=== PATIENT | male | born 1985 | race Caucasian/White ===

== ENCOUNTER 2016-06-30 23:32 | Emergency (ER) | payer OTHER ==
--- NOTE | 2016-07-01 02:40 | ED CLINICAL REPORT ---
Clinical Report - Physicians/Mid Levels [facility] [address] [place] [address] 06/30/2016 23:32 [id number] Time Seen: 00:44 Jul 01 2016. Arrived- By private vehicle. Historian- patient. CPT: ER phys charges level 3 (#[id number]). HISTORY OF PRESENT ILLNESS Chief Complaint: RIGHT TESTICULAR PAIN. 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 No dysuria or penile discharge. and is still present. The problem is described as moderate. No penile discharge, discomfort with urination, urinary frequency or genital lesion. He has had moderate testicular pain, involving the right testicle. Sexual history is noncontributory. He has not had an exposure to a sexually transmitted disease. Similar symptoms previously: None. Recent medical care: Not recently seen/assessed. REVIEW OF SYSTEMS No fever, chills, flank pain, hematuria or abdominal pain. No vomiting, diarrhea, black stools, sore throat or chest pain. No difficulty breathing, cough, joint pain, skin rash or back pain. All systems otherwise negative, except as recorded above. PAST HISTORY No history of sexually transmitted disease, epididymitis, prostatitis or urinary retention. Medications: None. Allergies: No Known Drug Allergy. SOCIAL HISTORY Heavy tobacco smoker (cigarette)- less than 1 pack per day. 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 No alcohol use. ADDITIONAL NOTES The nursing notes have been reviewed. PHYSICAL EXAM Vital Signs: 06/30/2016 23:43 BP: 138/90. HR: 100. RR: 20. O2 saturation: 96%. Temp: 98.1 F. Pain level now: 7/10. Appearance: Alert. Patient in mild distress. ENT: Pharynx normal. Neck: Neck supple. CVS: Heart sounds normal. Respiratory: No respiratory distress. Breath sounds normal. Abdomen: Soft and nontender. : Moderate left-sided scrotal swelling with tenderness. No erythema or fluctuance. No urethral discharge or genital lesion. Skin: Skin warm. Normal skin color. No rash. Extremities: Extremities exhibit normal ROM. No lower extremity edema. Neuro: Oriented X 3. No motor deficit. No sensory deficit. LABS, X-RAYS, AND EKG Testicular Scan: (Epididimytis left testicle.). The study was independently viewed by me and interpreted contemporaneously by me. Prior studies were not available for comparison. Laboratory Tests: UA-Culture if indicated: (CHADD: 07/01/2016 01:35) ( MsgRcvd 07/01/2016 01:57) Final results Test Result Flag Units (Reference) URINE COLOR YELLOW URINE APPEARANCE CLEAR URINE GLUCOSE NEGATIVE (NEGATIVE) URINE BILIRUBIN NEGATIVE (NEGATIVE) URINE KETONE NEGATIVE (NEGATIVE) URINE SPECIFIC GRAVITY >= 1.030 (1.010-1.030) URINE PH 6.0 (5.0-8.0) URINE PROTEIN NEGATIVE (NEGATIVE) URINE UROBILINOGEN 1.0 EU/dL (0.2-1.0) URINE NITRITE NEGATIVE (NEGATIVE) URINE BLOOD NEGATIVE (NEGATIVE) URINE LEUK ESTERASE NEGATIVE (NEGATIVE) URINE RBC NONE SEEN rbc/hpf (0-1) URINE WBC 0-1 wbc/hpf (0-1) URINE EPITHELIAL CELLS NONE SEEN EPI/hpf (0-5) URINE BACTERIA NONE SEEN (NONE SEEN) URINE COMMENT CULT NOT INDICATED URINE CULTURES ARE SET-UP BASED ON THE FOLLOWING CRITERIA:POSITIVE NITRITEPOSITIVE LEUKOCYTE ESTERASEGREATER THAN 10 WHITE BLOOD CELLSMODERATE (2+) OR GREATER BACTERIA . PROGRESS AND PROCEDURES Course of Care: Doxycycline 100 mg po. Patient/family counseled. Disposition: Discharged. Condition: stable. CLINICAL IMPRESSION Left epididymitis INSTRUCTIONS No strenuous activity. Drink plenty of fluids. Warnings: Further evaluation is necessary. GENERAL WARNINGS: Return or contact your physician immediately if your condition worsens or changes unexpectedly, if not improving as expected, or if other problems arise. Prescription Medications: Hydrocodone/APAP 5mg/325mg: take 1 to 2 orally every 6 hours as needed for pain. Dispense fifteen (15). No refills. Doxycycline 100 mg: Take 1 capsule orally every 12 hours for 10 days. No refill. Follow-up: Follow up with your doctor in one week. Call for an appointment. Understanding of the discharge instructions verbalized by patient. Discharge instructions reviewed with and understanding was verbalized by skin lifter bacon. (Electronically signed by Jose C Bowman MD 07/03/2016 20:50)
--- NOTE | 2016-07-01 02:40 | ED CLINICAL REPORT ---
Clinical Report - Physicians/Mid Levels [facility] [address] [place] [address] 06/30/2016 23:32 [id number] Time Seen: 00:44 Jul 01 2016. Arrived- By private vehicle. Historian- patient. CPT: ER phys charges level 3 (#[id number]). HISTORY OF PRESENT ILLNESS Chief Complaint: RIGHT TESTICULAR PAIN. 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 No dysuria or penile discharge. and is still present. The problem is described as moderate. No penile discharge, discomfort with urination, urinary frequency or genital lesion. He has had moderate testicular pain, involving the right testicle. Sexual history is noncontributory. He has not had an exposure to a sexually transmitted disease. Similar symptoms previously: None. Recent medical care: Not recently seen/assessed. REVIEW OF SYSTEMS No fever, chills, flank pain, hematuria or abdominal pain. No vomiting, diarrhea, black stools, sore throat or chest pain. No difficulty breathing, cough, joint pain, skin rash or back pain. All systems otherwise negative, except as recorded above. PAST HISTORY No history of sexually transmitted disease, epididymitis, prostatitis or urinary retention. Medications: None. Allergies: No Known Drug Allergy. SOCIAL HISTORY Heavy tobacco smoker (cigarette)- less than 1 pack per day. 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 No alcohol use. ADDITIONAL NOTES The nursing notes have been reviewed. PHYSICAL EXAM Vital Signs: 06/30/2016 23:43 BP: 138/90. HR: 100. RR: 20. O2 saturation: 96%. Temp: 98.1 F. Pain level now: 7/10. Appearance: Alert. Patient in mild distress. ENT: Pharynx normal. Neck: Neck supple. CVS: Heart sounds normal. Respiratory: No respiratory distress. Breath sounds normal. Abdomen: Soft and nontender. : Moderate left-sided scrotal swelling with tenderness. No erythema or fluctuance. No urethral discharge or genital lesion. Skin: Skin warm. Normal skin color. No rash. Extremities: Extremities exhibit normal ROM. No lower extremity edema. Neuro: Oriented X 3. No motor deficit. No sensory deficit. LABS, X-RAYS, AND EKG Testicular Scan: (Epididimytis left testicle.). The study was independently viewed by me and interpreted contemporaneously by me. Prior studies were not available for comparison. Laboratory Tests: UA-Culture if indicated: (CHADD: 07/01/2016 01:35) ( MsgRcvd 07/01/2016 01:57) Final results Test Result Flag Units (Reference) URINE COLOR YELLOW URINE APPEARANCE CLEAR URINE GLUCOSE NEGATIVE (NEGATIVE) URINE BILIRUBIN NEGATIVE (NEGATIVE) URINE KETONE NEGATIVE (NEGATIVE) URINE SPECIFIC GRAVITY >= 1.030 (1.010-1.030) URINE PH 6.0 (5.0-8.0) URINE PROTEIN NEGATIVE (NEGATIVE) URINE UROBILINOGEN 1.0 EU/dL (0.2-1.0) URINE NITRITE NEGATIVE (NEGATIVE) URINE BLOOD NEGATIVE (NEGATIVE) URINE LEUK ESTERASE NEGATIVE (NEGATIVE) URINE RBC NONE SEEN rbc/hpf (0-1) URINE WBC 0-1 wbc/hpf (0-1) URINE EPITHELIAL CELLS NONE SEEN EPI/hpf (0-5) URINE BACTERIA NONE SEEN (NONE SEEN) URINE COMMENT CULT NOT INDICATED URINE CULTURES ARE SET-UP BASED ON THE FOLLOWING CRITERIA:POSITIVE NITRITEPOSITIVE LEUKOCYTE ESTERASEGREATER THAN 10 WHITE BLOOD CELLSMODERATE (2+) OR GREATER BACTERIA . PROGRESS AND PROCEDURES Course of Care: Doxycycline 100 mg po. Patient/family counseled. Disposition: Discharged. Condition: stable. CLINICAL IMPRESSION Left epididymitis INSTRUCTIONS No strenuous activity. Drink plenty of fluids. Warnings: Further evaluation is necessary. GENERAL WARNINGS: Return or contact your physician immediately if your condition worsens or changes unexpectedly, if not improving as expected, or if other problems arise. Prescription Medications: Hydrocodone/APAP 5mg/325mg: take 1 to 2 orally every 6 hours as needed for pain. Dispense fifteen (15). No refills. Doxycycline 100 mg: Take 1 capsule orally every 12 hours for 10 days. No refill. Follow-up: Follow up with your doctor in one week. Call for an appointment. Understanding of the discharge instructions verbalized by patient. Discharge instructions reviewed with and understanding was verbalized by capacitor assembler. (Electronically signed by Jose C Bowman MD 07/03/2016 20:50)
--- NOTE | 2016-07-01 02:40 | ED NURSING NOTES ---
Clinical Report - Nurses [facility] [address] [place] [address] 06/30/2016 23:32 Patient: BECKY SAENZ TRIAGE Triage time 23:43 Jun 30 2016. Acuity: LEVEL 3. Chief Complaint: TESTICULAR PAIN and (left testical swelling). SEPSIS SCREEN: Sepsis Screen: negative. Infection suspected/documented. --23:47 Felicia Moore 23:43 06/30/16. BP: 138/90. HR: 100. RR: 20. O2 saturation: 96% on room air. Temp: 98.1 F (oral). Pain level now: 12/11. --23:47 Felicia Moore. Weight: 72.5 kg stated. Height/Length: 69 inches Per Patient. BMI: 23.6. --23:46 Felicia Moore. Medications None. --23:44 Felicia Moore. Allergies No Known Drug Allergy. --23:44 Felicia Moore. History Arrived by private vehicle. Historian: patient. Accompanied by friend. Primary physician (none). Onset. (3 days). ( Patient states on Sunday he began having some pain in his left testicle. He states by Sunday the testicle had become swollen. He states he is having some difficulty urinating. He denies any discharge.). PAST MEDICAL HX: Immunizations: up-to-date. SOCIAL HX: Light tobacco smoker (cigarette)- less than 1/2 a pack per day. History of drug use. (Just started going to suboxone clinic for opiate addiction). No alcohol use. No infectious disease exposure. ABUSE ASSESSMENT: No report of abuse. FALL RISK ASSESSMENT: Fall risk assessment completed. No fall risk identified. NUTRITIONAL RISK ASSESSMENT: The nutritional risk assessment revealed no deficiencies. FUNCTIONAL ASSESSMENT: Functional assessment: no impairments noted. LEARNING NEEDS ASSESSMENT: The learning needs assessment revealed no barriers. SKIN INTEGRITY ASSESSMENT: Skin integrity risk assessment completed. No skin integrity risk identified. --23:47 Felicia Moore. PROBLEMS: Suicidal Ideation. Alcohol Intoxication. Hypertension. Cardiomegaly. --23:45 Felicia Moore. ADDITIONAL SURGERIES: Right shoulder. --23:45 Felicia Moore. Interventions ID band on patient. To treatment room. --23:47 Felicia Moore. PHYSICAL ASSESSMENT Ambulatory to room. Patient gowned. GENERAL / NEURO / PSYCH: Alert. Oriented X 4. Appears in no acute distress. HEENT: Mucous membranes are pink. RESPIRATORY: Respirations not labored. GI / : Left-sided scrotal swelling. Scrotal tenderness. SKIN: Skin is warm and dry. --23:48 Felicia Moore. NURSING PROGRESS NOTES 23:48 06/30/16. Patient gowned. Reassurance given to the patient and patient's friends. Two patient identifiers checked. Call light placed in reach. Side rails up x 1. Bed placed in lowest position. Brakes of bed on. Patient ready for evaluation- chart flagged. --23:48 Felicia Moore 01:10 07/01/16. BP: 134/81. HR: 98. RR: 20. O2 saturation: 98% on room air. --01:11 Felicia Moore The patient reports no complaints and he is resting quietly. --01:11 Felicia Moore 02:42 07/01/2016 DOXYCYCLINE HYCLATE PO Capsules 100 mg given. Allergies verified and confirmed 5 rights. --02:52 Felicia Moore. DISPOSITION / DISCHARGE 03:00 07/01/16. Condition at departure: stable. No learning barriers present. Discharge instructions provided and reviewed with actuarial technician and the patient. Reviewed medication(s) side effects, precautions, dosing and course information. Prescription(s) given to the patient. Patient verbalized understanding. Written instructions provided in Mauritian. ( Follow up with your doctor in one week as needed. Complete antibiotics as prescribed.). The patient was discharged by the physician. He was discharged home and accompanied by actuarial technician. He left the Emergency Department ambulatory and via private vehicle. Bargeman driving. --03:16 Felicia Moore 02:55 07/01/16. BP: 120/83. HR: 100. RR: 20. O2 saturation: 96% on room air. Temp: 98.6 F (oral). Pain level now: 11/11. --03:16 Felicia Moore. Locked/Released at 07/01/2016 3:17 by Felicia Moore,
--- NOTE | 2016-07-01 02:40 | ED ORDER SUMMARY ---
..... Patient: BECKY SAENZ OrderSheet [facility] VisitID: [id number] [place] [address] 31y, M Registration Date/Time: 06/30/2016 ORDER SHEET Weight: 72.5 kg (stated) Allergies: No Known Drug Allergy GENERAL ORDERS: US Scrotum/Testicular Urgent (00:50 07/01/2016 Estefania DOAN) (Ack 0:52 AMcQuoid ER Tech1) (2:04 AMcQuoid ER Tech1) UA-Culture if indicated Urgent (00:50 07/01/2016 Estefania DOAN) (Ack 0:52 AMcQuoid ER Tech1) (1:43 Eric R.NJess) MEDICATION ORDERS: Doxycycline Hyclate PO 100 mg (NOW) (02:38 07/01/2016 Estefania DOAN) (Ack 2:39 HSoule) (2:52 HSoule) IV FLUIDS: ORDER SHEET NOTES: [Electronically signed by eFlicia Moore (03:17 07/01/2016)] [Electronically signed by Jose C Bowman MD (20:50 07/03/2016)] [Electronically locked/signed by Felicia Moore (03:07/01/2016)]
--- NOTE | 2016-07-01 02:40 | ED NURSING NOTES ---
Clinical Report - Nurses [facility] [address] [place] [address] 06/30/2016 23:32 Patient: BECKY SAENZ TRIAGE Triage time 23:43 Jun 30 2016. Acuity: LEVEL 3. Chief Complaint: TESTICULAR PAIN and (left testical swelling). SEPSIS SCREEN: Sepsis Screen: negative. Infection suspected/documented. --23:47 Felicia Moore 23:43 06/30/16. BP: 138/90. HR: 100. RR: 20. O2 saturation: 96% on room air. Temp: 98.1 F (oral). Pain level now: 12/11. --23:47 Felicia Moore. Weight: 72.5 kg stated. Height/Length: 69 inches Per Patient. BMI: 23.6. --23:46 Felicia Moore. Medications None. --23:44 Felicia Moore. Allergies No Known Drug Allergy. --23:44 Felicia Moore. History Arrived by private vehicle. Historian: patient. Accompanied by friend. Primary physician (none). Onset. (3 days). ( Patient states on Sunday he began having some pain in his left testicle. He states by Sunday the testicle had become swollen. He states he is having some difficulty urinating. He denies any discharge.). PAST MEDICAL HX: Immunizations: up-to-date. SOCIAL HX: Light tobacco smoker (cigarette)- less than 1/2 a pack per day. History of drug use. (Just started going to suboxone clinic for opiate addiction). No alcohol use. No infectious disease exposure. ABUSE ASSESSMENT: No report of abuse. FALL RISK ASSESSMENT: Fall risk assessment completed. No fall risk identified. NUTRITIONAL RISK ASSESSMENT: The nutritional risk assessment revealed no deficiencies. FUNCTIONAL ASSESSMENT: Functional assessment: no impairments noted. LEARNING NEEDS ASSESSMENT: The learning needs assessment revealed no barriers. SKIN INTEGRITY ASSESSMENT: Skin integrity risk assessment completed. No skin integrity risk identified. --23:47 Felicia Moore. PROBLEMS: Suicidal Ideation. Alcohol Intoxication. Hypertension. Cardiomegaly. --23:45 Felicia Moore. ADDITIONAL SURGERIES: Right shoulder. --23:45 Felicia Moore. Interventions ID band on patient. To treatment room. --23:47 Felicia Moore. PHYSICAL ASSESSMENT Ambulatory to room. Patient gowned. GENERAL / NEURO / PSYCH: Alert. Oriented X 4. Appears in no acute distress. HEENT: Mucous membranes are pink. RESPIRATORY: Respirations not labored. GI / : Left-sided scrotal swelling. Scrotal tenderness. SKIN: Skin is warm and dry. --23:48 Felicia Moore. NURSING PROGRESS NOTES 23:48 06/30/16. Patient gowned. Reassurance given to the patient and patient's friends. Two patient identifiers checked. Call light placed in reach. Side rails up x 1. Bed placed in lowest position. Brakes of bed on. Patient ready for evaluation- chart flagged. --23:48 Felicia Moore 01:10 07/01/16. BP: 134/81. HR: 98. RR: 20. O2 saturation: 98% on room air. --01:11 Felicia Moore The patient reports no complaints and he is resting quietly. --01:11 Felicia Moore 02:42 07/01/2016 DOXYCYCLINE HYCLATE PO Capsules 100 mg given. Allergies verified and confirmed 5 rights. --02:52 Felicia Moore. DISPOSITION / DISCHARGE 03:00 07/01/16. Condition at departure: stable. No learning barriers present. Discharge instructions provided and reviewed with benzene operator and the patient. Reviewed medication(s) side effects, precautions, dosing and course information. Prescription(s) given to the patient. Patient verbalized understanding. Written instructions provided in Panamanian. ( Follow up with your doctor in one week as needed. Complete antibiotics as prescribed.). The patient was discharged by the physician. He was discharged home and accompanied by benzene operator. He left the Emergency Department ambulatory and via private vehicle. Recreation Facilities Supervisor driving. --03:16 Felicia Moore 02:55 07/01/16. BP: 120/83. HR: 100. RR: 20. O2 saturation: 96% on room air. Temp: 98.6 F (oral). Pain level now: 11/11. --03:16 Felicia Moore. Locked/Released at 07/01/2016 3:17 by Felicia Moore,
--- NOTE | 2016-07-01 02:40 | ED ORDER SUMMARY ---
..... Patient: BECKY SAENZ OrderSheet [facility] VisitID: [id number] [place] [address] 31y, M Registration Date/Time: 06/30/2016 ORDER SHEET Weight: 72.5 kg (stated) Allergies: No Known Drug Allergy GENERAL ORDERS: US Scrotum/Testicular Urgent (00:50 07/01/2016 Estefania DOAN) (Ack 0:52 AMcQuoid ER Tech1) (2:04 AMcQuoid ER Tech1) UA-Culture if indicated Urgent (00:50 07/01/2016 Estefania DOAN) (Ack 0:52 AMcQuoid ER Tech1) (1:43 Eric R.NJess) MEDICATION ORDERS: Doxycycline Hyclate PO 100 mg (NOW) (02:38 07/01/2016 Estefania DOAN) (Ack 2:39 HSoule) (2:52 HSoule) IV FLUIDS: ORDER SHEET NOTES: [Electronically signed by Felicia Moore (03:17 07/01/2016)] [Electronically signed by Jose C Bowman MD (20:50 07/03/2016)] [Electronically locked/signed by Felicia Moore (03:07/01/2016)]
--- NOTE | 2016-07-01 15:40 | DIAGNOSTIC IMAGING REPORT ---
PROCEDURE: US SCROTUM/TESTICLE INDICATION: Scrotal swelling and left-sided pain, initial encounter TECHNIQUE: Moura scale and color Doppler sonographic images through the scrotum were obtained. COMPARISON: None. FINDINGS: RIGHT TESTICLE: Measures 4.4 x 2.4 x 2.8 cm. Normal echo structure and vascularity. 3.8 mm cyst in the head of the epididymis. Small hydrocele LEFT TESTICLE: Measures 4.3 x 2.5 x 2.9 cm with normal echo structure and vascularity. Enlargement of the epididymal tail with increased vascularity suggestive of epididymitis. Small hydrocele. IMPRESSION: 1. Left epididymitis 2. Small bilateral hydroceles
--- NOTE | 2016-07-03 20:51 | ED MED RECONCILIATION SUMMARY ---
Patient: BECKY SAENZ Medication Reconciliation Report [facility] VisitID: [id number] [place] [address] 31y, M Registration Date/Time: 06/30/2016 Weight: 72.5 kg Height/Length: 69 in. BMI: 23.6 ALLERGIES: No Known Drug Allergy The patient's Home Medications are listed below: NONE. The source(s) of the original Home Medication information: Not obtained. The following Medications were given to the patient in the Emergency Department: DOXYCYCLINE HYCLATE [PO] PO 100 mg, administered: 07/01/2016 2:42:00 AM The following Medications were prescribed to the patient: Hydrocodone/APAP 5mg/325mg: take 1 to 2 orally every 6 hours as needed for pain. Dispense fifteen (15). No refills. -- Jose C Bowman MD Doxycycline 100 mg: Take 1 capsule orally every 12 hours for 10 days. No refill. -- Jose C Bowman MD
--- NOTE | 2016-07-03 20:51 | ED DISCHARGE INSTRUCTIONS ---
Patient: BECKY SAENZ General Instructions [facility] VisitID: [id number] [place] [address] 31y, M Registration Date/Time: 06/30/2016 Left epididymitis INSTRUCTIONS No strenuous activity. Drink plenty of fluids. Warnings: Further evaluation is necessary. GENERAL WARNINGS: Return or contact your physician immediately if your condition worsens or changes unexpectedly, if not improving as expected, or if other problems arise. Prescription Medications: Hydrocodone/APAP 5mg/325mg: take 1 to 2 orally every 6 hours as needed for pain. Dispense fifteen (15). No refills. Doxycycline 100 mg: Take 1 capsule orally every 12 hours for 10 days. No refill. Follow-up: Follow up with your doctor in one week. Call for an appointment. Understanding of the discharge instructions verbalized by patient. Discharge instructions reviewed with and understanding was verbalized by cannon pinion adjuster. ADDITIONAL INFORMATION Epididymitis The pain and swelling in your scrotum are due to an inflammation of the epididymis. This is a small sac next to the testicle that stores sperm. It is usually due to an infection. In sexually active men, it is often due to a sexually transmitted disease (STD) such as Chlamydia or Gonorrhea. In boys and older men who are not sexually active, it is due to bacteria from the bladder or prostate gland (not an STD infection). Symptoms may begin with lower abdominal or low back pain and spreads down into the scrotum. Usually only one side is affected. The testicle and scrotum swell and become very painful. There may be fever and burning when passing urine. Sometimes there is a discharge from the penis. Treatment is with antibiotics, anti-inflammatory and pain medicines. There should be improvement over the first few days of treatment, but it will take several weeks for all the swelling and discomfort to go away. If an STD is suspected as a cause, sexual partners must also be treated. Home Care: 1) Support the scrotum. When lying down, place a rolled towel under the scrotum. When walking, use an athletic supporter or two pairs of Jockey-style underwear. 2) To relieve pain, apply ice packs to the inflamed area (ice cubes in a plastic bag wrapped in a towel). 3) You may use acetaminophen (Tylenol) or ibuprofen (Motrin, Advil) to control pain, unless another medicine was prescribed. [ NOTE : If you have chronic liver or kidney disease or ever had a stomach ulcer or GI bleeding, talk with your doctor before using these medicines.] 4) Rest in bed until the fever, pain and swelling decrease. It may take several weeks for all of the swelling to go away. Avoid coffee, tea, carbonated beverages and alcohol, which could worsen your symptoms. 5) Avoid constipation (which causes straining and therefore increased pain) by eating natural laxatives such as prunes, fresh fruits and whole-grain cereals. If necessary, use a mild koba-odr-yjsinlf laxative (Milk of Magnesia) for constipation. Mineral oil can be used to keep the stools soft. 6) Do not have sex until you have finished all treatment and all symptoms have cleared. 7) Take all medicine as directed. Do not miss any doses and do not stop early even if you feel better. Follow Up with your doctor, a urologist, or as advised by our staff to be sure you are responding properly to treatment. If a culture was taken, you may call for the result in 2-3 days. A culture test can ensure that you are on the correct antibiotic. Get Prompt Medical Attention if any of the following occur: -- Fever over 100.4 F (38.0 C) after three days of treatment -- Increasing pain or swelling of the testicle after starting treatment -- Increasing pressure or pain in your bladder -- Unable to pass urine for eight hours You have been given the following additional information: Epididymitis No strenuous activity. (Electronically signed by Jose C Bowman MD 07/03/2016 20:50)
--- NOTE | 2016-07-03 20:51 | ED MED RECONCILIATION SUMMARY ---
Patient: BECKY SAENZ Medication Reconciliation Report [facility] VisitID: [id number] [place] [address] 31y, M Registration Date/Time: 06/30/2016 Weight: 72.5 kg Height/Length: 69 in. BMI: 23.6 ALLERGIES: No Known Drug Allergy The patient's Home Medications are listed below: NONE. The source(s) of the original Home Medication information: Not obtained. The following Medications were given to the patient in the Emergency Department: DOXYCYCLINE HYCLATE [PO] PO 100 mg, administered: 07/01/2016 2:42:00 AM The following Medications were prescribed to the patient: Hydrocodone/APAP 5mg/325mg: take 1 to 2 orally every 6 hours as needed for pain. Dispense fifteen (15). No refills. -- Jose C Bowman MD Doxycycline 100 mg: Take 1 capsule orally every 12 hours for 10 days. No refill. -- Jose C Bowman MD
--- NOTE | 2016-07-03 20:51 | ED MAR SUMMARY ---
..... Medication Administration Record [facility] [address] [place] [address] Patient: BECKY SAENZ Visit ID: [id number] 31y, M Weight: 72.5 kg Height/Length: 69 in BMI: 23.6 ALLERGIES: No Known Drug Allergy Given 02:42 07/01/2016 Felicia Moore, Medication Administered: DOXYCYCLINE HYCLATE [PO], Dose: 100 mg Capsules PO. Medication Ordered: Doxycycline Hyclate PO 100 mg (NOW).
--- NOTE | 2016-07-03 20:51 | ED MAR SUMMARY ---
..... Medication Administration Record [facility] [address] [place] [address] Patient: BECKY SAENZ Visit ID: [id number] 31y, M Weight: 72.5 kg Height/Length: 69 in BMI: 23.6 ALLERGIES: No Known Drug Allergy Given 02:42 07/01/2016 Felicia Moore, Medication Administered: DOXYCYCLINE HYCLATE [PO], Dose: 100 mg Capsules PO. Medication Ordered: Doxycycline Hyclate PO 100 mg (NOW).
--- NOTE | 2016-07-03 20:51 | ED DISCHARGE INSTRUCTIONS ---
Patient: BECKY SAENZ General Instructions [facility] VisitID: [id number] [place] [address] 31y, M Registration Date/Time: 06/30/2016 Left epididymitis INSTRUCTIONS No strenuous activity. Drink plenty of fluids. Warnings: Further evaluation is necessary. GENERAL WARNINGS: Return or contact your physician immediately if your condition worsens or changes unexpectedly, if not improving as expected, or if other problems arise. Prescription Medications: Hydrocodone/APAP 5mg/325mg: take 1 to 2 orally every 6 hours as needed for pain. Dispense fifteen (15). No refills. Doxycycline 100 mg: Take 1 capsule orally every 12 hours for 10 days. No refill. Follow-up: Follow up with your doctor in one week. Call for an appointment. Understanding of the discharge instructions verbalized by patient. Discharge instructions reviewed with and understanding was verbalized by senior microsoft net developer. ADDITIONAL INFORMATION Epididymitis The pain and swelling in your scrotum are due to an inflammation of the epididymis. This is a small sac next to the testicle that stores sperm. It is usually due to an infection. In sexually active men, it is often due to a sexually transmitted disease (STD) such as Chlamydia or Gonorrhea. In boys and older men who are not sexually active, it is due to bacteria from the bladder or prostate gland (not an STD infection). Symptoms may begin with lower abdominal or low back pain and spreads down into the scrotum. Usually only one side is affected. The testicle and scrotum swell and become very painful. There may be fever and burning when passing urine. Sometimes there is a discharge from the penis. Treatment is with antibiotics, anti-inflammatory and pain medicines. There should be improvement over the first few days of treatment, but it will take several weeks for all the swelling and discomfort to go away. If an STD is suspected as a cause, sexual partners must also be treated. Home Care: 1) Support the scrotum. When lying down, place a rolled towel under the scrotum. When walking, use an athletic supporter or two pairs of Jockey-style underwear. 2) To relieve pain, apply ice packs to the inflamed area (ice cubes in a plastic bag wrapped in a towel). 3) You may use acetaminophen (Tylenol) or ibuprofen (Motrin, Advil) to control pain, unless another medicine was prescribed. [ NOTE : If you have chronic liver or kidney disease or ever had a stomach ulcer or GI bleeding, talk with your doctor before using these medicines.] 4) Rest in bed until the fever, pain and swelling decrease. It may take several weeks for all of the swelling to go away. Avoid coffee, tea, carbonated beverages and alcohol, which could worsen your symptoms. 5) Avoid constipation (which causes straining and therefore increased pain) by eating natural laxatives such as prunes, fresh fruits and whole-grain cereals. If necessary, use a mild [id number] laxative (Milk of Magnesia) for constipation. Mineral oil can be used to keep the stools soft. 6) Do not have sex until you have finished all treatment and all symptoms have cleared. 7) Take all medicine as directed. Do not miss any doses and do not stop early even if you feel better. Follow Up with your doctor, a urologist, or as advised by our staff to be sure you are responding properly to treatment. If a culture was taken, you may call for the result in 2-3 days. A culture test can ensure that you are on the correct antibiotic. Get Prompt Medical Attention if any of the following occur: -- Fever over 100.4 F (38.0 C) after three days of treatment -- Increasing pain or swelling of the testicle after starting treatment -- Increasing pressure or pain in your bladder -- Unable to pass urine for eight hours You have been given the following additional information: Epididymitis No strenuous activity. (Electronically signed by Jose C Bowman MD 07/03/2016 20:50)
== END 2016-07-01 03:00 | disposition home or self-care (01) ==
LOC: ED SRH 23:32
DX: N45.1 Epididymitis (principal)
CPT/HCPCS: 90004